=== PATIENT | female | born 1985 | race Caucasian/White ===

== ENCOUNTER 2017-10-18 10:32 | Emergency (ER) | payer BC, OTHER ==
[2017-10-18 10:41] VITALS: BP 133/86; PULSE 87; RESP 18; TEMP 98.5; O2SAT 100
[2017-10-18 10:42] VITALS: BMI 25.7
--- NOTE | 2017-10-18 10:44 | C.PDOC ---
History Of Present Illness 32 y/o female brought by ambulance to the ER for bilateral knee pain which occurred in the morning. Patient reports that she tripped and fell on a sidewalk suffering abrasions to bilateral knees. Patient denies having loss of consciousness and other medical complaints. Time Seen by Provider: 10/18/17 10:41 History Per: Patient History/Exam Limitations: no limitations Onset/Duration Of Symptoms: Hrs Current Symptoms Are (Timing): Still Present Severity: Moderate Past Medical History Reviewed: Historical Data, Nursing Documentation, Vital Signs Vital Signs: Last Vital Signs Temp 98.5 F 10/18/17 10:40 Pulse 87 10/18/17 10:40 Resp 18 10/18/17 10:40 BP 133/86 10/18/17 10:40 Pulse Ox 100 10/18/17 13:03 - Medical History PMH: Bronchitis Denies: Asthma Surgical History: No Surg Hx Family History: States: No Known Family Hx - Social History Hx Tobacco Use: Yes Hx Alcohol Use: No Hx Substance Use: No - Immunization History Hx Tetanus Toxoid Vaccination: No Hx Influenza Vaccination: No Hx Pneumococcal Vaccination: No Review Of Systems Except As Marked, All Systems Reviewed And Found Negative. Musculoskeletal: Positive for: Leg Pain (bilateral knee pain) Neurological: Negative for: Weakness, Numbness Physical Exam - Physical Exam Appears: Non-toxic, No Acute Distress Skin: Normal Color, Warm Head: Atraumatic, Normacephalic Eye(s): bilateral: Normal Inspection, PERRL Nose: Normal Oral Mucosa: Moist Neck: Supple Chest: Symmetrical Cardiovascular: Rhythm Regular Respiratory: Normal Breath Sounds, No Accessory Muscle Use Extremity: Normal ROM, No Tenderness (bilateral knees), No Pedal Edema, No Swelling (bilateral knees), Other (superficial abrasions to bilateral knees) Neurological/Psych: Oriented x3, Normal Speech, Normal Cognition, Normal Motor, Normal Sensation ED Course And Treatment O2 Sat by Pulse Oximetry: 100 (RA) Pulse Ox Interpretation: Normal Progress Note: X-ray of knees ordered. Patient given Motrin and Bacitracin. Medical Decision Making Medical Decision Making: tripped forward walking abrasions to b/l knees normal knee exams pt insisted on L knee films- neg Cleaned and bandaged no Td required for superficial wound Disposition Doctor Will See Patient In The: Office Counseled Patient/Family Regarding: Studies Performed, Diagnosis - Disposition Referrals: [facility] [Outside] [facility] [Outside] Disposition: HOME/ ROUTINE Disposition Time: 10:44 Condition: GOOD Additional Instructions: continue daily wash with soap and water of your abrasions to the knees ice packs to the knees 1/2 hour per hour, nothing hot. follow-up in our outpatient Clinic as needed Instructions: Contusion in Adults (ED), Abrasion (ED) Forms: [facility] at [facility] (Thai) - Clinical Impression Clinical Impression: Abrasion, knee - Scribe Statement The provider has reviewed the documentation as recorded by the Farzana Pickard Provider Attestation: All medical record entries made by the Farzana were at my direction and personally dictated by me. I have reviewed the chart and agree that the record accurately reflects my personal performance of the history, physical exam, medical decision making, and the department course for this patient. I have also personally directed, reviewed, and agree with the discharge instructions and disposition.
[2017-10-18] MEDS ORDERED: Bacitracin 500 Units/gm Oint Foilpak UD ONE (10:57)
--- NOTE | 2017-10-18 11:01 | RAD ---
PROCEDURE: Left Knee Radiographs. HISTORY: COMPARISON: None available. FINDINGS: BONES: No acute displaced fracture. JOINTS: No dislocation. JOINT EFFUSION: No significant joint effusion. OTHER FINDINGS: None. IMPRESSION: No acute displaced fracture, dislocation, or significant joint effusion identified. If symptoms persist, or if there is continued clinical concern, x-ray follow-up in 7-10 days should be considered.
[2017-10-18] MEDS ORDERED: Bacitracin Ointment 30 GM TUBE TOP STA (11:08)
== END 2017-10-18 11:11 | disposition home or self-care (01) ==
LOC: C.ER 10:32
DX: S80.212A Abrasion, left knee, initial encounter (principal); S80.211A Abrasion, right knee, initial encounter; W01.0XXA Fall on same level from slipping, tripping and stumbling without subsequent striking against object, initial encounter; Y92.480 Sidewalk as the place of occurrence of the external cause